=== PATIENT | female | born 1955 | race Caucasian/White ===

== ENCOUNTER → 2016-08-14 | Outpatient (CLI) | payer OTHER ==
[~2016-08-14] MED LIST: ANAS1TAB19 PO; BISA-16 PO; CALCTAB7 PO; LORA-741 PO; MULTTAB58 PO; SIMV40TA4 PO
[2016-08-14 10:05] LABS: CALCIUM 9.2 mg/dl (8.5-10.1)
[2016-08-14 10:25] LABS: CALCIUM URINE 13.6 mg/dl
[2016-08-15 18:39] LABS: ALBUMIN 4.3 G/DL (3.8-4.8); GAMMA GLOBULIN 1.2 G/DL (0.8-1.7); TOTAL PROTEIN 7.2 G/DL (6.2-8.3)
== END | disposition home or self-care (01) ==
LOC: C.LAB1850 07:41
PROVIDERS: ATTEND Internal Medicine Rheumatology
DX: M81.0 Age-related osteoporosis without current pathological fracture (principal); E55.9 Vitamin D deficiency, unspecified; E61.8 Deficiency of other specified nutrient elements

== ENCOUNTER → 2016-11-10 | Outpatient (CLI) | payer OTHER | END | disposition home or self-care (01) | LOC: C.LAB1850 10:31 | PROVIDERS: ATTEND Internal Medicine Rheumatology | DX: M81.0 Age-related osteoporosis without current pathological fracture (principal); E55.9 Vitamin D deficiency, unspecified; E61.8 Deficiency of other specified nutrient elements ==

== ENCOUNTER → 2017-09-13 | Outpatient (CLI) | payer OTHER ==
[2017-09-13 14:44] LABS: BASO % 0.5 %; BASO ABS # 0.03 K/uL (0-0.2); EOS % 1.9 %; EOS ABS # 0.11 K/uL (0-0.5); HEMATOCRIT 43.5 % (37-47); HEMOGLOBIN 14.9 g/dL (12.0-16.0); IG# 0.01 K/uL (0.00-0.02); LYMPH % 32.6 %; LYMPH ABS # 1.89 K/uL (1.2-3.4); MEAN CELL VOLUME 89.3 fL (80-100); MEAN CORPUSCULAR HEMOGLOBIN 30.6 pg (25-34); MEAN CORPUSCULAR HGB CONC 34.3 g/dl (32-36); MEAN PLATELET VOLUME 9.4 fL (7.4-10.4); MONO % 8.1 %; MONO ABS # 0.47 K/uL (0.11-0.59); NEUT % 56.7 %; NEUT ABS # 3.29 K/uL (1.4-6.5); PLATELET COUNT 329 K/uL (130-400); RED CELL DISTRIBUTION WIDTH CV 14.1 % (11.5-14.5)
[2017-09-13 15:10] LABS: ALBUMIN 3.8 gm/dl (3.4-5.0); ALT/SGPT 31 U/L (12-78); BLOOD UREA NITROGEN 22 mg/dl (7-18); CALCIUM 9.3 mg/dl (8.5-10.1); CARBON DIOXIDE 27 mmol/L (21-32); CHOLESTEROL 185 mg/dl (0-200); CREATININE 1.07 mg/dl (0.60-1.20); GLUCOSE 86 mg/dl (70-99); POTASSIUM 4.1 mmol/L (3.5-5.1); SODIUM 136 mmol/L (136-145)
[2017-09-13 15:20] LABS: ALKALINE PHOSPHATASE 74 U/L (45-117); AST/SGOT 15 U/L (15-37); LDL CHOLESTEROL CALCULATED 107 mg/dl; TOTAL PROTEIN 7.8 gm/dl (6.4-8.2)
[2017-09-13 16:48] LABS: HEMOGLOBIN A1C 5.6 % (4.5-5.6)
== END | disposition home or self-care (01) ==
LOC: C.LAB1850 12:46
PROVIDERS: ATTEND Internal Medicine
DX: I10 Essential (primary) hypertension (principal); E78.00 Pure hypercholesterolemia, unspecified; M81.0 Age-related osteoporosis without current pathological fracture; E03.9 Hypothyroidism, unspecified; R73.01 Impaired fasting glucose; E55.9 Vitamin D deficiency, unspecified; E61.8 Deficiency of other specified nutrient elements

== ENCOUNTER → 2017-12-05 | Day surgery (SDC) | payer OTHER ==
[2017-11-21 10:44] VITALS: Ht 157.5 cm; Wt 79.5 kg
[~2017-12-05] VITALS: Ht 157.5 cm; Wt 79.5 kg
[~2017-12-05] MED LIST changes: +ACET-1256 PO; -ANAS1TAB19 PO; +ASPECOTC PO; -BISA-16 PO; +CHOL1TAB42 PO; +DOCU-94 PO; +EpHEDrine SULFATE 50MG/5ML SYR ONE; +FENTANYL CITRATE INJ 50 MCG/1 ML 2 ML VIAL ONE; +LIDOCAINE HCL 2% 2 ML VIAL (20MG/ML) ONE; +LISI10TA PO; -LORA-741 PO; +PROPOFOL IV EMULSION 10 MG/ML 20 ML VIAL ONE; +SIMV-151 PO; -SIMV40TA4 PO; +SODIUM CHLORIDE 0.9% 500ML 500 ML IV ONE
--- NOTE | 2017-12-05 10:44 | Endo History and Physical ---
History & Physical Date of Service: December 05, 2017. Chief Complaint: Screening Referring Physician: Dr Cardenas History of Present Illness 62 yo CF who presents for screening colonoscopy. Past Surgical History Hx Cardiac Surgery: No Hx Internal Defibrillator: No Hx Pacemaker: No Hx Abdominal Surgery: Yes (HYSTERECTOMY) Hx of Implantable Prosthesis: No Hx Cancer Surgery: Yes (L BREAST MASECTOMY) Hx Thoracic Surgery: No Hx Orthopedic: No Hx Urinary Tract Surgery: No Family History IBD Social History Smoking Status: Former Smoker Hx Substance Use: Yes (HX OF MARIJUANA USE IN PAST, NONE RECENTLY) Hx Alcohol Use: Yes (OCCASIONAL) Allergies Coded Allergies: Dust (Verified Allergy, Unknown, SNEEZING, 12/05/17) Gadolinium (Verified Allergy, Unknown, ANAPHYLAXIS, 12/05/17) Iodinated Diagnostic Agents (Verified Allergy, Unknown, ANAPHYLAXIS, ) POLLEN (Verified Allergy, Unknown, SNEEZING, 12/05/17) Shellfish (Verified Allergy, Unknown, SWELLING, 12/05/17) Current Medications Reported Home Medications Medications Dose Route/Sig Max Daily Dose Days Date Category Vitamin D (Cholecalciferol) 5,000 Unit Tab 1 Tab PO DAILY 11/21/17 Reported Prinivil (Lisinopril) 10 Mg Tab 10 Mg PO DAILY 11/21/17 Reported Simvastatin 20 Mg Tab 1 Tab PO DAILY 11/21/17 Reported Tylenol (Acetaminophen) 500 Mg Tab 2 Tab PO Q6 PRN 2 11/21/17 Reported Aspirin 325 Mg Tab 325 Mg PO DIRECTED PRN 11/21/17 Reported Colace (Docusate Sodium) 100 Mg Cap 2 Cap PO DAILY PRN 15 11/21/17 Reported Multivitamin (Multiple Vitamin) 1 Tab Tab 1 Tab PO DAILY 09/12/12 Reported Caltrate 600 Plus (Calcium Carbonate-Vitamin D W/) 1 Tab Tab 1 Tab PO DAILY 09/12/12 Reported Vital Signs Weight (Kilograms): 79.55 Height (Feet): 5 Height (Inches): 2 Date Time Temp Pulse Resp B/P (MAP) Pulse Ox O2 Delivery O2 Flow Rate FiO2 12/05/17 10:28 36.4 72 20 139/97 (111) 97 Room Air Physical Exam General Appearance: WD/WN, no apparent distress Respiratory/Chest: Auscultation: breath sounds normal Cardiovascular: Heart Auscultation: RRR Abdomen: Bowel Sounds: normal Inspection & Palpation: soft, non-distended, no tenderness, guarding & rebound Assessment and Plan Assessment: 62 yo CF who presents for screening colonoscopy. Plan: Proceed with colonoscopy.
--- NOTE | 2017-12-05 11:34 | Discharge Instructions ---
Endoscopy Patient Instructions Date / Procedure(s) Performed December 05, 2017. Colonoscopy Allergy Information Coded Allergies: Dust (Verified Allergy, Unknown, SNEEZING, 12/05/17) Gadolinium (Verified Allergy, Unknown, ANAPHYLAXIS, 12/05/17) Iodinated Diagnostic Agents (Verified Allergy, Unknown, ANAPHYLAXIS, ) POLLEN (Verified Allergy, Unknown, SNEEZING, 12/05/17) Shellfish (Verified Allergy, Unknown, SWELLING, 12/05/17) Discharge Date / Findings December 05, 2017. Rectal polyp Internal hemorrhoids Medication Instructions OK to resume all medications today as prescribed Reported Home Medications Medications Dose Route/Sig Max Daily Dose Days Date Category Vitamin D (Cholecalciferol) 5,000 Unit Tab 1 Tab PO DAILY 11/21/17 Reported Prinivil (Lisinopril) 10 Mg Tab 10 Mg PO DAILY 11/21/17 Reported Simvastatin 20 Mg Tab 1 Tab PO DAILY 11/21/17 Reported Tylenol (Acetaminophen) 500 Mg Tab 2 Tab PO Q6 PRN 2 11/21/17 Reported Aspirin 325 Mg Tab 325 Mg PO DIRECTED PRN 11/21/17 Reported Colace (Docusate Sodium) 100 Mg Cap 2 Cap PO DAILY PRN 15 11/21/17 Reported Multivitamin (Multiple Vitamin) 1 Tab Tab 1 Tab PO DAILY 09/12/12 Reported Caltrate 600 Plus (Calcium Carbonate-Vitamin D W/) 1 Tab Tab 1 Tab PO DAILY 09/12/12 Reported Provider Instructions Activity Restrictions - No exercising or heavy lifting for 24 hours. - Do not drink alcohol the day of the procedure. - Do not drive a car or operate machinery until the day after the procedure. - Do not make any important decisions or sign important papers in 24 hours after the procedure. Following Day: - Return to full activity which may include returning to work/school. Diet Start your diet with liquids and light foods (jello, soup, juice, toast). Then eat your usual diet if not nauseated. Treatment For Common After Affects For mild abdominal pain, bloating, or excessive gas: - Rest - Eat lightly - Lie on right side Follow-Up Information Follow-up with Dr Cardenas as scheduled Anesthesia Information What You Should Know You have had a procedure that required some medicine to reduce anxiety and discomfort. This treatment is called moderate sedation. After receiving the treatment, you may be sleepy, but you will be able to breathe on your own. The effects of the treatment may last for several hours. Follow these instructions along with Activity/Diet recommendations noted above: * Do NOT do anything where dizziness or clumsiness would be dangerous. * Rest quietly at home today, then you can be up and about tomorrow. * Have a responsible person stay with you the rest of today. * You may have had an I.V. today. If so, you may take the dressing off later today. Recommendations Call your doctor if: * Trouble breathing * Continuous vomiting for more than 24 hours * Temperature above 101 degrees * Severe abdominal pain or bloating * Pain not relieved by pain medicine ordered * There is increased drainage or redness from any incision * A large amount of rectal bleeding greater than 2-3 tablespoons. (If you had a polyp/s removed or have hemorrhoids, a small amount of blood - from the rectum is to be expected.) * You have any unanswered questions or concerns. IN THE EVENT OF A SERIOUS EMERGENCY, GO TO THE NEAREST EMERGENCY ROOM Your discharge instructions were prepared by provider Nicolás Mccall. Patient Instructions Signature Page Ashia Laboy Patient (or Guardian) Signature/Date: I have read and understand the instructions given to me by my caregivers. Caregiver/RN/Doctor Signature/Date: The above-named patient and/or guardian has received patient instructions on this date. + Original Patient Signature Page (only) stays with chart. Please make copy for patient.
--- NOTE | 2017-12-05 11:36 | Anesthesiology Progress Note ---
Anesthesia Post Op Note Date & Time December 05, 2017 at 11:36 Vital Signs Vital Signs Past 12 Hours Date Time Temp Pulse Resp B/P (MAP) Pulse Ox O2 Delivery O2 Flow Rate FiO2 12/05/17 11:29 74 18 91/65 (74) 96 Room Air 12/05/17 11:14 76 16 97/61 (73) 96 Room Air 12/05/17 10:28 36.4 72 20 139/97 (111) 97 Room Air Notes Mental Status: alert / awake / arousable, participated in evaluation Pt Amnestic to Procedure: Yes Nausea / Vomiting: adequately controlled Pain: adequately controlled Airway Patency, RR, SpO2: stable & adequate BP & HR: stable & adequate Hydration State: stable & adequate Anesthetic Complications: no major complications apparent
--- NOTE | 2017-12-05 11:49 | GI REPORT ---
Patient Name: Ashia Laboy Procedure Date: 12/05/2017 10:30 AM Date of : 1955 Admit Type: Outpatient Age: 62 Gender: Female Attending MD: Nicolás Mccall DO Procedure: Colonoscopy Providers: Nicolás Mccall DO Referring MD: Richmond Cardenas Indications: Screening for colorectal malignant neoplasm Medicines: Monitored Anesthesia Care Complications: No immediate complications. Estimated Blood Loss: Estimated blood loss: none. Procedure: Pre-Anesthesia Assessment: - Prior to the procedure, a History and Physical was performed, and patient medications and allergies were reviewed. The patient's tolerance of previous anesthesia was also reviewed. The risks and benefits of the procedure and the sedation options and risks were discussed with the patient. All questions were answered, and informed consent was obtained. Prior Anticoagulants: The patient has taken aspirin, last dose was 4 days prior to procedure. ASA Grade Assessment: II - A patient with mild systemic disease. After reviewing the risks and benefits, the patient was deemed in satisfactory condition to undergo the procedure. After I obtained informed consent, the scope was passed under direct vision. Throughout the procedure, the patient's blood pressure, pulse, and oxygen saturations were monitored continuously. The scope was introduced through the anus and advanced to the terminal ileum. The colonoscopy was performed without difficulty. The patient tolerated the procedure well. The quality of the bowel preparation was good. The terminal ileum, ileocecal valve, appendiceal orifice, and rectum were photographed. Findings: The perianal and digital rectal examinations were normal. A 6 mm polyp was found in the rectum. The polyp was sessile. The polyp was removed with a hot snare. Resection and retrieval were complete. Non-bleeding internal hemorrhoids were found during retroflexion. The hemorrhoids were small. Impression: - One 6 mm polyp in the rectum, removed with a hot snare. Resected and retrieved. - Non-bleeding internal hemorrhoids. Recommendation: - Resume previous diet. - Continue present medications. - Repeat colonoscopy for surveillance based on pathology results. - Return to primary care physician as previously scheduled. Nicolás Mccall DO 12/05/2017 11:49:06 AM This report has been signed electronically. Note Initiated On: 12/05/2017 10:30 AM Number of Addenda: 0 I attest to the content of the Intraoperative Record and orders documented therein, exceptions below {[id number]}
[2017-12-05 11:59] VITALS: BP 111/66; PULSE 78; O2SAT 98
== END | disposition home or self-care (01) ==
LOC: C.GI 09:44
PROVIDERS: ATTEND Internal Medicine
DX: Z12.11 Encounter for screening for malignant neoplasm of colon (principal); D12.8 Benign neoplasm of rectum; K64.8 Other hemorrhoids; E78.5 Hyperlipidemia, unspecified; I10 Essential (primary) hypertension; K21.9 Gastro-esophageal reflux disease without esophagitis; Z90.710 Acquired absence of both cervix and uterus; Z90.12 Acquired absence of left breast and nipple; Z87.891 Personal history of nicotine dependence; Z91.041 Radiographic dye allergy status; Z91.013 Allergy to seafood; Z79.899 Other long term (current) drug therapy; Z85.3 Personal history of malignant neoplasm of breast